=== PATIENT | male | born 1985 | race Caucasian/White ===

== ENCOUNTER → 2025-11-02 15:49 | Outpatient (CLI) | payer OTHER, SELFPAY ==
--- NOTE | 2025-11-02 15:52 | DI.MRI.S_ITS ---
PROCEDURE: MR SHOULDER RT W CON INDICATIONS: RT shoulder pain TECHNIQUE: After the administration of 12 mL of dilute intra-articular Gadolinium contrast, oblique coronal T1 and T2 spin echo with fat saturation, oblique sagittal T1 spin echo with and without fat saturation, oblique sagittal T2 fast spin echo with fat saturation, axial T1 spin echo with fat saturation through the shoulder. COMPARISON: None. FINDINGS: Image quality: Excellent. Rotator cuff: The supraspinatus, infraspinatus, and subscapularis tendons appear intact throughout. No rotator cuff muscle atrophy on sagittal images. Bones and bursae: No bone marrow contusions or fractures. Mild glenohumeral and acromioclavicular joint degeneration. The acromion demonstrates conventional anatomy, without an os acromiale. Capsule and soft tissues: There is undercutting of the anteroinferior, inferior, posterior inferior, and mid posterior labrum. The long head of the biceps tendon demonstrates normal location and morphology. The rotator interval appears normal, without fibrosis. The coracohumeral ligament is of normal thickness. No intra- articular bodies. IMPRESSION: 1. Labral tearing. 2. Acromioclavicular and glenohumeral joint osteoarthritis. Dictated by: Kamlesh Carroll M.D. on 11/03/2025 at 13:17 Approved by: Kamlesh Carroll M.D. on 11/03/2025 at 13:18
--- NOTE | 2025-11-02 15:52 | DI.RAD.S_ITS ---
PROCEDURE: FL ARTHROGRAM SHOULDER RT INDICATIONS: RT shoulder pain COMPARISON: None. TECHNIQUE: The indications, alternatives, benefits, risks, and complications of the procedure were explained to the patient. Written informed consent was obtained and placed in the chart. The shoulder was examined fluoroscopically and a site for needle placement chosen for entry into the glenohumeral joint from an anterior approach. The skin was prepped and draped in a sterile fashion, and 1% lidocaine infiltrated from skin down to joint capsule. A spinal needle was inserted into the glenohumeral joint, and a small amount of iodinated contrast media injected to confirm intra-articular placement of the needle tip. This was followed by approximately 12 mL dilute solution of a gadolinium containing MR contrast agent. The needle was removed and a dressing was applied. The patient was given postprocedural instructions and sent to the MR suite for MR imaging. FINDINGS: A single fluoroscopic spot image demonstrates intra-articular location of injected iodinated contrast. IMPRESSION: Successful fluoroscopically guided administration of dilute Gadolinium solution into the right glenohumeral shoulder joint for MR arthrogram. Dictated by: Ihsan Cool M.D. on 11/02/2025 at 22:18 Approved by: Ihsan Cool M.D. on 11/02/2025 at 22:19
[2025-11-02] MEDS: LIDOCAINE 1% 20 ML INJ (16:17)
[2025-11-02] MEDS: SODIUM CHLORIDE 0.9 % 20 ML VIAL IV (16:18)
== END ==
PROVIDERS: Referring Provider Nurse Practitioner Family; Visit Provider Nurse Practitioner Family
DX: M19.011 Primary osteoarthritis, right shoulder (principal); S43.491A Other sprain of right shoulder joint, initial encounter; M25.511 Pain in right shoulder
CPT/HCPCS: 23350; 73040; 73222; A9579; Q9967